=== PATIENT | male | born 2000 | race Caucasian/White ===

== ENCOUNTER → 2019-04-06 | Outpatient (CLI) | payer BC | LOC: COL.LAB 09:37 | DX: E03.9 Hypothyroidism, unspecified (principal) ==

== ENCOUNTER 2020-02-05 13:20 | Emergency (ER) | payer BC ==
[~2020-02-05] VITALS: Ht 177.8 cm; Wt 86.4 kg
[2020-02-05 13:58] VITALS: TEMP 98.2
[2020-02-05 16:26] VITALS: BP 118/76; PULSE 74
== END 2020-02-05 16:44 | disposition home or self-care (01) ==
LOC: COL.ER 13:20
DX: S61.412A Laceration without foreign body of left hand, initial encounter (principal); W26.0XXA Contact with knife, initial encounter; Y93.G3 Activity, cooking and baking